=== PATIENT | male | born 1945 | race Caucasian/White ===

== ENCOUNTER 2020-04-16 11:17 | Observation (INO) | payer MEDICARE, OTHER ==
[2020-04-16 11:39] LABS: #Basophils 0.1 thou/uL (0.0-0.2); #Eosinphils 0.1 thou/uL (0.0-0.7); #Lymphocytes 2.1 thou/uL (1.20-3.40); #Monocytes 0.5 thou/uL (0.11-0.59); #Neutrophils 3.6 thou/uL (1.40-6.50); %Basophils 1.7 % (0.0-1.0); %Eosinophils 2.2 % (0.0-10.0); %Lymphocytes 32.3 % (21.0-51.0); %Neutrophils 55.8 % (42.0-75.0); Hemoglobin 14.5 g/dL (14.0-18.0); Mean Corpuscular HGB CONC 32.9 g/dL (32.0-36.0); Mean Corpuscular Hemoglobin 30.2 pg (27.0-31.0); Mean Corpuscular Volume 91.9 fL (78.0-98.0); Mean Platelet Volume 7.4 fL (7.4-10.4); Platelet Count 221 thou/uL (130-400); RBC Distribution Width 11.5 % (11.5-14.5); Red Blood Cell (RBC) Count 4.81 mill/uL (4.70-6.10); White Blood Cell (WBC) Count 6.5 thou/uL (4.8-10.8)
--- NOTE | 2020-04-16 11:43 | RAD ---
Exam: Chest one view HISTORY:Chest pain. Comparison: None FINDINGS: Cardiac silhouette: Normal Aorta: Unremarkable Pulmonary vessels: Normal Costophrenic angles: Clear LUNGS: No masses or consolidation. Pneumothorax: None Osseous abnormalities: None IMPRESSION: No acute cardiopulmonary process.
[2020-04-16 12:05] LABS: Anion Gap 13 mmol/L (10-20); BUN (Urea Nitrogen) 19 mg/dL (8.4-25.7); Calc. Creatinine Clearance 0 mL/min (70-130); Calcium 9.4 mg/dL (7.8-10.44); Carbon Dioxide 25 mmol/L (23-31); Chloride 107 mmol/L (98-107); Glucose 181 mg/dL (83-110); Potassium 4.4 mmol/L (3.5-5.1); Sodium 141 mmol/L (136-145)
[2020-04-16] MEDS ORDERED: Aspirin Chewable 81 MG TAB ONE (12:05)
[2020-04-16] MEDS ORDERED: Nitroglycerin 2% Ointment 1 INCH/1 GM Packet ONE (13:06)
[2020-04-16] MEDS ORDERED: Ondansetron PF 4 MG/2 ML Vial IVP PRN (13:11)
[2020-04-16] MEDS ORDERED: Acetaminophen 325 MG TAB PO PRN (13:11)
[2020-04-16] MEDS ORDERED: Nitroglycerin 0.4 MG TAB (25 Tab Bottle) SL PRN (13:11)
[2020-04-16] MEDS ORDERED: Dextrose 5% in Water 1,000 ML IV PRN (13:16)
[2020-04-16] MEDS ORDERED: HumaLOG 300 UNITS/3 ML VIAL SC PRN (13:16)
[2020-04-16] MEDS ORDERED: Dextrose 50% Abboject 50 ML SYRINGE SLOW IVP PRN (13:16)
--- NOTE | 2020-04-16 13:19 | PDOC.HHP ---
Hospitalist HPI Chest pain History of Present Illness: Patient is a 74-year-old male with PMH of HTN, DM type II, HLD, and BPH who pr esents to the ED with chest pain. Patient states he started having chest pain 2 days ago, it started on his lower chest area now moving to his substernal area. Pain is squeezing, worse with deep breath, better with leaning forward, nonradiating. He denies shortness of breath. He has chronic cough associated with his seasonal allergy. He says his regular HR is usually in the 50's and sometimes goes down to 40's. Past History: PMH: HTN, DM type II, HLD, and BPH Surgical hx: None Family hx: Father from ruptured aortic aneurysm Social hx: Drinks about 4 glasses of wine per week. He used to smoke when he was teenager. Denies drug use Hospitalist HPI ROS Constitutional: denies: fever, chills Eyes: denies: vision change ENT: denies: throat pain Respiratory: reports: cough. denies: shortness of breath Cardiovascular: reports: chest pain Gastrointestinal: denies: nausea, vomiting Genitourinary: denies: dysuria Skin: denies: rash Other: Negative for ROMAN or dizziness. Hospitalist Exam General Appearance: NAD, awake alert Eye: PERRL ENT: moist mucosa Neck: supple, no JVD Heart: no murmur Heart - other findings: Bradycardic, regular rhythm Respiratory: CTAB, no wheezes, no tachypnea Gastrointestinal: soft, non-tender, non-distended Extremities: no edema Neurological: normal sensation to touch, no weakness Musculoskeletal: normal strength Psychiatric: A&O x 3 Hospitalist Results Result Diagrams: 04/16/20 11:30 04/16/20 11:30 Lab results: Laboratory Last Values WBC 6.5 thou/uL (4.8-10.8) 04/16/20 11:30 RBC 4.81 mill/uL (4.70-6.10) 04/16/20 11:30 Hgb 14.5 g/dL (14.0-18.0) 04/16/20 11:30 Hct 44.2 % (42.0-52.0) 04/16/20 11:30 MCV 91.9 fL (78.0-98.0) 04/16/20 11:30 MCH 30.2 pg (27.0-31.0) 04/16/20 11:30 MCHC 32.9 g/dL (32.0-36.0) 04/16/20 11:30 RDW 11.5 % (11.5-14.5) 04/16/20 11:30 Plt Count 221 thou/uL (130-400) 04/16/20 11:30 MPV 7.4 fL (7.4-10.4) 04/16/20 11:30 Neutrophils % 55.8 % (42.0-75.0) 04/16/20 11:30 Lymphocytes % 32.3 % (21.0-51.0) 04/16/20 11: Monocytes % 8.0 % (0.0-10.0) 04/16/20 11: Eosinophils % 2.2 % (0.0-10.0) 04/16/20 11: Basophils % 1.7 % (0.0-1.0) H 04/16/20 11:30 Neutrophils # 3.6 thou/uL (1.40-6.50) 04/16/20 11:30 Lymphocytes # 2.1 thou/uL (1.20-3.40) 04/16/20 11:30 Monocytes # 0.5 thou/uL (0.11-0.59) 04/16/20 11:30 Eosinophils # 0.1 thou/uL (0.0-0.7) 04/16/20 11:30 Basophils # 0.1 thou/uL (0.0-0.2) 04/16/20 11:30 D-Dimer 0.35 *mcg/mL (0.27-0.43) 04/16/20 11:30 Sodium 141 mmol/L (136-145) 04/16/20 11:30 Potassium 4.4 mmol/L (3.5-5.1) 04/16/20 11:30 Chloride 107 mmol/L (98-107) 04/16/20 11:30 Carbon Dioxide 25 mmol/L (23-31) 04/16/20 11:30 Anion Gap 13 mmol/L (10-20) 04/16/20 11:30 BUN 19 mg/dL (8.4-25.7) 04/16/20 11:30 Creatinine 1.02 mg/dL (0.7-1.3) 04/16/20 11:30 Estimated GFR (MDRD) 71 04/16/20 11:30 Glucose 181 mg/dL (83-110) H 04/16/20 11:30 Calcium 9.4 mg/dL (7.8-10.44) 04/16/20 11:30 Troponin I Less than 0.010 ng/mL (< 0.028) 04/16/20 11:30 Chest x-ray Status: image reviewed by me Additional Comments: XR Chest 1 View Portable Observe DT: WedApr 16, 2020 11:32, CXRP Exam: Chest one view HISTORY:Chest pain. Comparison: None FINDINGS: Cardiac silhouette: Normal Aorta: Unremarkable Pulmonary vessels: Normal Costophrenic angles: Clear LUNGS: No masses or consolidation. Pneumothorax: None Osseous abnormalities: None IMPRESSION: No acute cardiopulmonary process EKG Status: image reviewed by me (NSR. Vent rate 61. No acute ST/T wave changes) Hospitalist H&P A/P (1) Chest pain Code(s): R07.9 - CHEST PAIN, UNSPECIFIED Status: Acute Assessment and Plan: Patient presented with atypical chest pain. The nature of his chest pain is concerning for pericarditis. Troponin negative x1. EKG showed no acute ST/T changes. Plan: -trend troponin -Echo -Stress test -Nitro SL prn -Aspirin (2) DM type 2 (diabetes mellitus, type 2) Status: Chronic Qualifiers: Diabetes mellitus long-term insulin use: without long-term use Diabetes mellitus complication status: without complication Qualified Code(s): E11.9 - Type 2 diabetes mellitus without complications Assessment and Plan: He is on PO med at home Plan: -SS insulin ACHS (3) HTN (hypertension) Code(s): I10 - ESSENTIAL (PRIMARY) HYPERTENSION Status: Chronic Assessment and Plan: Plan: -cont home med (4) HLD (hyperlipidemia) Code(s): E78.5 - HYPERLIPIDEMIA, UNSPECIFIED Status: Chronic Assessment and Plan: Plan: -cont home med
[2020-04-16 15:28] LABS: Troponin I Less than 0.010 ng/mL (< 0.028)
[2020-04-16 18:58] VITALS: BMI 26.1
[2020-04-16 19:06] LABS: Troponin I Less than 0.010 ng/mL (< 0.028)
[2020-04-17 04:52] LABS: #Eosinphils 0.1 thou/uL (0.0-0.7); #Lymphocytes 2.3 thou/uL (1.20-3.40); #Monocytes 0.7 thou/uL (0.11-0.59); #Neutrophils 4.7 thou/uL (1.40-6.50); %Basophils 0.6 % (0.0-1.0); %Eosinophils 1.6 % (0.0-10.0); %Lymphocytes 29.5 % (21.0-51.0); %Monocytes 8.7 % (0.0-10.0); %Neutrophils 59.6 % (42.0-75.0); Hemoglobin 12.4 g/dL (14.0-18.0); Mean Corpuscular HGB CONC 33.8 g/dL (32.0-36.0); Mean Corpuscular Volume 91.9 fL (78.0-98.0); Mean Platelet Volume 7.7 fL (7.4-10.4); Platelet Count 193 thou/uL (130-400); RBC Distribution Width 11.4 % (11.5-14.5); White Blood Cell (WBC) Count 7.9 thou/uL (4.8-10.8)
[2020-04-17 05:06] LABS: Anion Gap 10 mmol/L (10-20); BUN (Urea Nitrogen) 23 mg/dL (8.4-25.7); Calc. Creatinine Clearance 80 mL/min (70-130); Calcium 8.7 mg/dL (7.8-10.44); Carbon Dioxide 27 mmol/L (23-31); Cardiac Risk 4.6 (Less than 4.5); Chloride 108 mmol/L (98-107); Cholesterol 158 mg/dl (< 200 Desired); Glucose 166 mg/dL (83-110); HDL Cholesterol 34 mg/dL (>60 Neg Risk); LDL Cholesterol, Calculated 88 mg/dL; Potassium 4.3 mmol/L (3.5-5.1); Sodium 141 mmol/L (136-145); Triglycerides 178 mg/dL (Less than 150)
[2020-04-17 05:09] LABS: Hemoglobin A1c 6.4 % (4.0-6.0)
[2020-04-17] MEDS ORDERED: Lisinopril 10 MG TAB PO SCH (09:00)
[2020-04-17] MEDS ORDERED: Aspirin Chewable 81 MG TAB PO SCH (09:00)
[2020-04-17] MEDS ORDERED: FLU VACC QS2020-21(65YR UP)/PF 240 MCG/0.7 ML SYRINGE IM ONE (09:00)
[2020-04-17] MEDS ORDERED: Regadenoson 0.4 MG/5 ML SYRINGE ONE (10:21)
--- NOTE | 2020-04-17 11:32 | NM ---
Radionucleotide stress and rest myocardial perfusion scan with CT attenuation correction and SPECT im aging Left ventricular wall motion evaluation and ejection fraction HISTORY: Chest pain. FINDINGS: Lexiscan protocol. Homogeneous uptake of radiotracer throughout the left ventricular myocar dium. No focal perfusion defect or reversibility. QGS analysis of gated SPECT images shows no focal wall motion abnormalities. Ejection fraction calcul ated at 70%. IMPRESSION : No evidence of ischemia. Normal LVEF.
[2020-04-17 12:26] VITALS: BP 126/75; TEMP 98.6
[2020-04-17] MEDS ORDERED: Ketorolac Tromethamine 30 MG/ML VIAL IVP SCH (13:30)
--- NOTE | 2020-04-17 15:30 | PDOC.BPN ---
- Brief Progress Note [id number] discharge summary dictated
--- NOTE | 2020-04-18 05:31 | DIS ---
DATE OF ADMISSION: 04/16/2020 DATE OF DISCHARGE: 04/17/2020 CHIEF COMPLAINT: Chest pain. DISCHARGE DIAGNOSES: 1. Acute chest pain, acute coronary syndrome was ruled out, possible pericarditis. 2. Diabetes mellitus, type 2. 3. Hypertension. 4. Hyperlipidemia. HOSPITAL COURSE: Mr. Restrepo is a 74-year-old male with past medical history of diabetes mellitus, hypertension, and hyperlipidemia, presented to the emergency room with chest pain. The chest pain has been going on for the two days prior to arrival. He describes the chest pain as squeezing, worse with deep breathing and better with leaning forward, nonradiating. Workup in the hospital includes the EKG, serial troponins, which was unremarkable. The patient also underwent a nuclear medicine stress test, which was negative and with no evidence of ischemia and normal left ventricular ejection fraction. The patient also just underwent a 2D echo. The results are still pending at the time of discharge, the patient said that he would like to go home and he will let his primary care physician to follow the results of the 2D echo. The patient said that he has anti-inflammatory medications at home including ibuprofen and he will continue to take it for possible pericarditis, he was instructed also to take Nexium or pantoprazole while taking NSAIDs. PHYSICAL EXAMINATION: GENERAL: The patient is awake, alert, does not appear to be in any distress. VITAL SIGNS: Blood pressure is 126/75, pulse is 77, temperature is 98.6, respiratory rate is 15, oxygen saturation is 95% on room air. HEAD AND NECK: Normocephalic and atraumatic. NECK: Supple. No JVD. CHEST: Fair bilateral air entry. HEART: S1 and S2. Regular. ABDOMEN: Soft and nontender. Bowel sounds present. NEUROLOGIC: Awake, alert, and oriented x3. PSYCH: Normal mood. EXTREMITIES: No clubbing. No cyanosis. Discharge diagnosis as above. PLAN: 1. The patient to be discharged home. The patient is to continue to take anti-inflammatory medication. 2. The patient to take pantoprazole, to continue his home medications. 3. The patient to resume his blood pressure and diabetes medications. 4. The patient was instructed to follow with primary care physician within a week and to follow on the 2D echo results. 5. Activity as tolerated. 6. Diet, heart healthy diabetic diet. 7. The patient was discharged in stable condition. Time spent in discharge with the patient, 60 minutes. Job ID: [id number]
== END 2020-04-17 16:30 | disposition home or self-care (01) ==
LOC: ERS 11:17 → ERHOLD 13:11 → 2NO 18:48
PROVIDERS: ADMIT Internal Medicine; ATTEND Internal Medicine
DX: R07.89 Other chest pain (principal); I10 Essential (primary) hypertension; E11.9 Type 2 diabetes mellitus without complications; E78.5 Hyperlipidemia, unspecified; N40.0 Benign prostatic hyperplasia without lower urinary tract symptoms; Z87.891 Personal history of nicotine dependence; Z79.1 Long term (current) use of non-steroidal anti-inflammatories (NSAID); Z79.82 Long term (current) use of aspirin; Z79.84 Long term (current) use of oral hypoglycemic drugs; Z79.899 Other long term (current) drug therapy; Z88.0 Allergy status to penicillin
CPT/HCPCS: 71045; 78452; 80048 ×2; 80061; 82962 ×2; 83036; 84484 ×2; 85025 ×2; 85379; 93005; 93017; 93306; 99285; A9500; 36415; 36416; 96374; G0378; J1815; J1885; J2785